=== PATIENT | male | born 1990 | race Caucasian/White ===

== ENCOUNTER 2016-07-25 16:23 | Emergency (ER) | payer BC, OTHER ==
[2016-07-25 16:33] VITALS: BP 135/77
[2016-07-25] MEDS ORDERED: Albuterol/Ipratropium 3.0-0.5 MG/3 ML Neb Soln NEB ONE (16:58)
[2016-07-25] MEDS ORDERED: predniSONE 20 MG Tab PO ONE (16:58)
[2016-07-25] MEDS ORDERED: Sodium Chloride 0.9% 1,000 ML IV ONE (16:59)
[2016-07-25] MEDS ORDERED: Sodium Chloride 0.9% 10 ML Syringe FLUSH PRN (16:59)
--- NOTE | 2016-07-25 17:03 | EDM.PDOC ---
ED HPI GENERAL MEDICAL PROBLEM - General Chief Complaint: Respiratory Problem Stated Complaint: POSSIBLE PNEMONIA Time Seen by Provider: 07/25/16 16:49 Source of Information: Reports: Patient History Limitations: Reports: No Limitations - History of Present Illness INITIAL COMMENTS - FREE TEXT/NARRATIVE: Patient is a 25-year-old male who presents to ED with concerns of pneumonia. Patient was seen by his PCP Dr. Rivera yesterday for worsening cough and shortness of breath. Labs were obtained with no concerning findings. Chest x- ray did reveal infiltrate to the right lower lobe suggestive of right lower lobar pneumonia. He was prescribed azithromycin. He was reevaluated today in the clinic and was feeling twice as bad. Thus was instructed to come to the ED for chest x-ray and lab work. States cough is worse today and has felt more short of breath. In addition notes increased coughing fits and decreased appetite. He has been pushing fluids. Past medical history includes asthma and anxiety. Current medications include azithromycin, albuterol, and Lexapro. Patient is a nonsmoker. Generalized Pain Score (Numeric/FACES): 7 - Related Data Allergies Allergy/AdvReac Type Severity Reaction Status Date / Time No Known Allergies Allergy Verified 07/25/16 16:33 Home Meds: Home Meds Albuterol Sulfate [Proair Hfa] 2 puff INH Q4H PRN 07/25/16 [History] Azithromycin [Zithromax] 1 tab PO DAILY 07/25/16 [History] Escitalopram [Lexapro] 10 mg PO DAILY 07/25/16 [History] Fluticasone/Vilanterol [Breo Ellipta 200-25 Mcg INH] 1 puff INH DAILY 07/25/16 [ History] Hydrocodone/Chlorphen P-Stirex [Tussionex Pennkinetic Susp] 5 ml PO TID PRN # 115 mike.er.12h 07/25/16 [Rx] Prednisone [IMW: predniSONE] 40 mg PO WITHBREAKFAST #10 tab 07/25/16 [Rx] Past Medical History Respiratory History: Reports: Asthma Social & Family History - Tobacco Use Smoking Status *Q: Never Smoker - Caffeine Use Caffeine Use: Reports: None - Recreational Drug Use Recreational Drug Use: No ED ROS GENERAL - Review of Systems Review Of Systems: See Below Constitutional: Reports: Fever, Chills HEENT: Reports: Sinus Problem, Throat Pain. Denies: Rhinitis, Throat Swelling Respiratory: Reports: Shortness of Breath, Wheezing, Cough. Denies: Sputum Cardiovascular: Denies: Chest Pain, Dyspnea on Exertion, Lightheadedness, Palpitations, Syncope GI/Abdominal: Denies: Abdominal Pain, Nausea, Vomiting : Reports: No Symptoms ED EXAM, GENERAL - Physical Exam Exam: See Below Exam Limited By: No Limitations General Appearance: Alert, WD/WN, No Apparent Distress Eye Exam: Bilateral Eye: PERRL Ears: Hearing Grossly Normal Nose: Normal Inspection Throat/Mouth: Normal Inspection, Normal Oropharynx, Normal Voice, No Airway Compromise Respiratory/Chest: No Respiratory Distress, No Accessory Muscle Use, Chest Non- Tender, Wheezing (expiratory wheezes rLL and RML. ). No: Decreased Breath Sounds Cardiovascular: Normal Peripheral Pulses, Regular Rate, Rhythm, No Murmur Peripheral Pulses: 2+: Radial (L) GI/Abdominal: Normal Bowel Sounds, Soft, Non-Tender, No Organomegaly, No Distention Neurological: Alert, Oriented, CN II-XII Intact, Normal Cognition Psychiatric: Normal Affect, Normal Mood Skin Exam: Warm, Dry, Intact, Normal Color Course - Vital Signs Last Recorded V/S: Last Vital Signs Temp 97.9 F 07/25/16 21:25 Pulse 99 07/25/16 16:30 Resp 22 H 07/25/16 16:30 BP 135/77 07/25/16 16:30 Pulse Ox 98 07/25/16 17:06 - Orders/Labs/Meds Orders: Active Orders 24 hr Category Date Time Status Peripheral IV Care [RC] . DIRECTED Care 07/25/16 16:59 Active RT Aerosol Therapy [RC] ASDIRECTED Care 07/25/16 16:59 Active Chest 2V [CR] Stat Exams 07/25/16 16:58 Taken Peripheral IV Insertion Adult [OM.PC] Stat Oth 07/25/16 16:59 Ordered Labs: Laboratory Tests 07/25/16 07/25/16 Range/Units 17:17 17:17 WBC 6.91 (4.23-9.07) K/mm3 RBC 4.28 L (4.63-6.08) M/mm3 Hgb 12.8 L (13.7-17.5) gm/L Hct 37.4 L (40.1-51.0) % MCV 87.4 (79.0-92.2) fl MCH 29.9 (25.7-32.2) pg MCHC 34.2 (32.2-35.5) g/dl RDW Std Deviation 40.0 (35.1-43.9) fL Plt Count 296 (163-337) K/mm3 MPV 9.8 (9.4-12.3) fl Neut % (Auto) 71.3 H (34.0-67.9) % Lymph % (Auto) 16.8 L (21.8-53.1) % [place] % (Auto) 9.6 (5.3-12.2) % Eos % (Auto) 1.6 (0.8-7.0) Baso % (Auto) 0.4 (0.1-1.2) % Neut # (Auto) 4.93 (1.78-5.38) K/mm3 Lymph # (Auto) 1.16 L (1.32-3.57) K/mm3 [place] # (Auto) 0.66 (0.30-0.82) K/mm3 Eos # (Auto) 0.11 (0.04-0.54) K/mm3 Baso # (Auto) 0.03 (0.01-0.08) K/mm3 Sodium 140 (136-145) mEq/L Potassium 4.3 (3.5-5.1) mEq/L Chloride 101 (98-107) mEq/L Carbon Dioxide 27 (21-32) mEq/L Anion Gap 16.3 H (5-15) BUN 11 (7-18) mg/dL Creatinine 1.1 (0.7-1.3) mg/dL Est Cr Clr Drug Dosing 74.42 mL/min Estimated GFR (MDRD) > 60 (>60) mL/min BUN/Creatinine Ratio 10.0 L (14-18) Glucose 94 (74-106) mg/dL Calcium 8.9 (8.5-10.1) mg/dL Total Bilirubin 0.9 (0.2-1.0) mg/dL AST 25 (15-37) U/L ALT 30 (16-63) U/L Alkaline Phosphatase 61 (46-116) U/L C-Reactive Protein 15.3 H* (<1.0) mg/dL Total Protein 7.7 (6.4-8.2) g/dl Albumin 3.2 L (3.4-5.0) g/dl Globulin 4.5 gm/dL Albumin/Globulin Ratio 0.7 L (1-2) Meds: Medications Discontinued Medications Generic Name Dose Route Start Last Admin Trade Name Freq PRN Reason Stop Dose Admin Acetaminophen 975 mg 07/25/16 20:19 07/25/16 20:33 Tylenol PO 07/25/16 20:20 975 mg NOW ONE Administration Albuterol/Ipratropium 3 ml 07/25/16 16:58 07/25/16 17:05 Duoneb 3.0-0.5 Mg/3 Ml NEB 07/25/16 16:59 3 ml ONETIME ONE Administration Ceftriaxone Sodium 1,000 mg 07/25/16 18:06 07/25/16 18:35 Rocephin IVPUSH 07/25/16 18:07 Not Given ONETIME ONE Sodium Chloride 1,000 mls @ 999 mls/hr 07/25/16 16:59 07/25/16 17:17 Normal Saline IV 07/25/16 17:59 999 mls/hr ONETIME ONE Administration Ceftriaxone Sodium 1 gm/ 100 mls @ 200 mls/hr 07/25/16 18:28 07/25/16 18:33 Sodium Chloride IV 07/25/16 18:57 200 mls/hr ONETIME ONE Administration Prednisone 40 mg 07/25/16 16:58 07/25/16 17:18 Prednisone PO 07/25/16 16:59 40 mg ONETIME ONE Administration Sodium Chloride 10 ml 07/25/16 16:59 07/25/16 17:18 Saline Flush FLUSH 10 ml ASDIRECTED PRN Administration Keep Vein Open - Re-Assessments/Exams Free Text/Narrative Re-Assessment/Exam: 07/25/16 17:02 Ordered IV with NS, DuoNeb, and prednisone 40 mg p.o. Initial labs and studies include CBC, chem 14, CRP, and chest x-ray 2 view. Patient had some improvement to the coughing with the above therapies. Chest x-ray revealed right middle lobe and left lower lobe pneumonia. Labs revealed white blood cell count 6.91, hemoglobin 12.8, neutrophil % 1.3, digital #4.93, sodium 140, potassium 4.3, CO2 27, creatinine 1.1. CRP is 15. Offered to admit patient for pneumonia to which he refused. Requested to be discharged home. 07/25/16 20:10 Patient was feeling warm. Temp was 100.7. Ordered tylenol 975mg PO. Patient has had multiple coughing fits. He has notified nursing staff he wishes to be admitted. 07/25/16 21:10 Cough has subsided. Patient requests to be discharged home. Will not change antibiotic. Added prednisone and tussionex to treatment regimen. Patient has albuterol inhaler and neb treatments at home. Departure - Departure Time of Disposition: 21:02 Disposition: Admitted As Inpatient 64 Condition: fair Clinical Impression: Community acquired pneumonia - Discharge Information Prescriptions: Hydrocodone/Chlorphen P-Stirex [Tussionex Pennkinetic Susp] 5 ml PO TID PRN # 115 mike.er.12h PRN Reason: Cough Prednisone [IMW: predniSONE] 40 mg PO WITHBREAKFAST #10 tab Instructions: Community-Acquired Pneumonia, Adult, [id number] Referrals: Moo Rivera Jr, MD [Primary Care Provider] - Forms: ED Department Discharge Additional Instructions: As discussed keep taking the azithromycin as prescribed. Will add prednisone 40 mg every a.m. for 5 days and Tussionex cough syrup 5 mls 3 times a day as needed for coughing. This medication has narcotics and thus request no driving while taking this. Continue utilizing her albuterol inhaler and that treatment as prescribed. Push fluids. Ensure adequate rest. Follow up with your primary care provider in 7-10 days for reevaluation. Cough may persist for quite some time. Can also add Mucinex 600 mg twice a day for 7 days. Return back to the ED for any new or worsening symptoms. - My Orders Last 24 Hours: My Active Orders 07/25/16 16:58 Chest 2V [CR] Stat 07/25/16 16:59 Peripheral IV Care [RC] . DIRECTED RT Aerosol Therapy [RC] ASDIRECTED Peripheral IV Insertion Adult [OM.PC] Stat - Assessment/Plan Last 24 Hours: My Active Orders 07/25/16 16:58 Chest 2V [CR] Stat 07/25/16 16:59 Peripheral IV Care [RC] . DIRECTED RT Aerosol Therapy [RC] ASDIRECTED Peripheral IV Insertion Adult [OM.PC] Stat
[2016-07-25] MEDS ORDERED: cefTRIAXone 1,000 MG VIAL IVPUSH ONE (18:06)
[2016-07-25] MEDS ORDERED: cefTRIAXone 1 GM in Sodium Chloride 0.9% 100 ML IV ONE (18:28)
[2016-07-25] MEDS ORDERED: Acetaminophen 325 MG Tab PO ONE (20:19)
--- NOTE | 2016-07-26 12:55 | CR ---
Chest: Two views of the chest were obtained. Comparison: No previous study. Increased density identified within both lungs. Heart size and mediastinum are normal. Bony structures are unremarkable. Impression: 1. Increased density within both lungs most likely representing multifocal pneumonia. Diagnostic code #5
== END 2016-07-25 21:30 | disposition critical access hospital (66) ==
LOC: JD.ED 16:23 → EDBD 16:23 → JD.ED 21:30
DX: J18.9 Pneumonia, unspecified organism (principal); J45.909 Unspecified asthma, uncomplicated; F41.9 Anxiety disorder, unspecified; Z79.2 Long term (current) use of antibiotics; Z79.899 Other long term (current) drug therapy
CPT/HCPCS: 36415; 71020; 80053; 85025; 86140; 94664; 96361; 96365; 96366; 99285; A9270; J0696; J7030; J7040; J7050; 99284

== ENCOUNTER 2017-02-26 08:46 | Emergency (ER) | payer BC ==
[2017-02-26 09:02] VITALS: BP 130/76
--- NOTE | 2017-02-26 09:03 | EDM.PDOC ---
ED HPI GENERAL MEDICAL PROBLEM - General Chief Complaint: Trauma Stated Complaint: [facility] Time Seen by Provider: 02/26/17 08:48 - History of Present Illness INITIAL COMMENTS - FREE TEXT/NARRATIVE: 27-year-old male presents emergency room after falling downstairs sustaining head injury. Patient was standing on the top step started going down stairs his feet went out from underneath him he believes he struck his head first and then hit his bottom he complains of the back of his head hurting. No other significant complaints at this point. He's unsure if he had knee brief loss of consciousness he saw stars after it happened. He's had no nausea no vomiting with careful discussion it sounds as though the head hit first from a height greater than 5 feet. The patient felt dazed after this occurred this is improving. Posterior Head Pain Score (Numeric/FACES): 7 - Related Data Allergies Allergy/AdvReac Type Severity Reaction Status Date / Time No Known Allergies Allergy Verified 07/25/16 16:33 Home Meds: Home Meds Albuterol Sulfate [Proair Hfa] 2 puff INH Q4H PRN 07/25/16 [History] Escitalopram [Lexapro] 10 mg PO DAILY 07/25/16 [History] Fluticasone/Vilanterol [Breo Ellipta 200-25 Mcg INH] 1 puff INH DAILY 07/25/16 [ History] Past Medical History Respiratory History: Reports: Asthma Social & Family History - Tobacco Use Smoking Status *Q: Never Smoker - Caffeine Use Caffeine Use: Reports: None - Recreational Drug Use Recreational Drug Use: No Review of Systems - Review of Systems Review Of Systems: See Below Constitutional: Reports: No Symptoms Eyes: Reports: No Symptoms Ears: Reports: No Symptoms Nose: Reports: No Symptoms Mouth/Throat: Reports: No Symptoms Respiratory: Reports: No Symptoms Cardiovascular: Reports: No Symptoms GI/Abdominal: Reports: No Symptoms ED EXAM, GENERAL - Physical Exam Exam: See Below Exam Limited By: No Limitations General Appearance: Alert, No Apparent Distress Eye Exam: Bilateral Eye: EOMI, PERRL Ears: Normal External Exam, Normal Canal, Hearing Grossly Normal, Normal TMs Nose: Normal Inspection, Normal Mucosa, No Blood Throat/Mouth: Normal Inspection, Normal Lips, Normal Teeth, Normal Gums, Normal Oropharynx, Normal Voice, No Airway Compromise Head: Normocephalic, Other (Operation over the occiput) Neck: Normal Inspection, Supple, Non-Tender, Full Range of Motion, Other (No bony tenderness however he has some discomfort when he moves his head. He has some left-sided paraspinous tightness that extends down into his back.). No: Lymphadenopathy (L), Lymphadenopathy (R), Tender Midline Respiratory/Chest: No Respiratory Distress, Lungs Clear, Normal Breath Sounds Cardiovascular: Regular Rate, Rhythm, No Edema, No Murmur Back Exam: Normal Inspection. No: Vertebral Tenderness Neurological: Other (Cranial nerves II through XII grossly intact all muscle groups in upper and lower extremities are equal and appropriate bilaterally. Cerebellar testing is within normal limits.) Psychiatric: Normal Affect, Normal Mood Skin Exam: Warm, Dry, Intact, Normal Color Course - Vital Signs Last Recorded V/S: Last Vital Signs Temp 36.9 C 02/26/17 08:52 Pulse 67 02/26/17 08:52 Resp 15 02/26/17 08:52 BP 130/76 02/26/17 08:52 Pulse Ox 100 02/26/17 08:52 - Orders/Labs/Meds Orders: Active Orders 24 hr Category Date Time Status Cervical Spine 2V or 3V [CR] Stat Exams 02/26/17 08:59 Taken Meds: Medications Discontinued Medications Generic Name Dose Route Start Last Admin Trade Name Ale PRN Reason Stop Dose Admin Acetaminophen 650 mg 02/26/17 09:35 02/26/17 09:59 Tylenol PO 02/26/17 09:36 650 mg NOW ONE Administration - Re-Assessments/Exams Free Text/Narrative Re-Assessment/Exam: 02/26/17 09:[address] appears to be normal. Cervical spine shows loss of lordotic curvature otherwise no acute fracture dislocation identified. The patient will be given Tylenol for his discomfort 02/26/17 10:47 Patient continues to do well we'll discharge at this point Departure - Departure Time of Disposition: 10:47 Disposition: Home, Self-Care 01 Clinical Impression: Head injury, Cervical muscle strain - Discharge Information Referrals: Moo Rivera Jr, MD [Primary Care Provider] - Forms: ED Department Discharge Additional Instructions: Return to the emergency room with any questions or problems. Close observation today return to the emergency room with any unusual symptoms or unusual behavior. Tylenol 650 mg every 4-6 hours as needed for discomfort today, tomorrow he may use ibuprofen as needed. Follow-up with your regular physician early next week or follow-up at the Hospital clinic. [phone] - My Orders Last 24 Hours: My Active Orders 02/26/17 08:59 Cervical Spine 2V or 3V [CR] Stat - Assessment/Plan Last 24 Hours: My Active Orders 02/26/17 08:59 Cervical Spine 2V or 3V [CR] Stat
--- NOTE | 2017-02-26 09:32 | CT ---
Head CT Technique: Multiple axial sections through the brain were obtained. Intravenous contrast was not utilized. Comparison: No prior intracranial imaging. Findings: Ventricles along with basal cisterns and sulci over the convexities are within normal limits for the patient's age. No abnormal parenchymal densities are seen. No evidence of intracranial hemorrhage. No midline shift or mass effect is seen. Bone window settings were reviewed which shows the visualized sinuses to appear clear. No acute calvarial abnormality is identified. Impression: 1. No acute intracranial abnormality is identified. Diagnostic code #1
[2017-02-26] MEDS ORDERED: Acetaminophen 325 MG Tab PO ONE (09:35)
--- NOTE | 2017-02-26 10:54 | CR ---
Cervical spine: AP, lateral and odontoid views of the cervical spine were obtained. Comparison: No previous study. Disc spaces are maintained. Prevertebral soft tissues are normal. No acute fracture or other bony abnormality is seen. Impression: 1. No abnormality is identified on three-view cervical spine study. Diagnostic code #1
== END 2017-02-26 11:00 | disposition home or self-care (01) ==
LOC: JD.ED 08:47
DX: S16.1XXA Strain of muscle, fascia and tendon at neck level, initial encounter (principal); S09.90XA Unspecified injury of head, initial encounter; J45.909 Unspecified asthma, uncomplicated; Z79.899 Other long term (current) drug therapy; W10.8XXA Fall (on) (from) other stairs and steps, initial encounter
CPT/HCPCS: 70450; 72040; 99285; A9270; 99283

== ENCOUNTER 2020-01-18 15:45 | Emergency (ER) | payer BC, OTHER ==
[2020-01-18 16:01] VITALS: BP 148/90; PULSE 86
[2020-01-18] MEDS ORDERED: Haloperidol Lactate 5 MG/ML SDV IVPUSH ONE (16:12)
[2020-01-18] MEDS ORDERED: diphenhydrAMINE 50 MG/ML SDV IVPUSH ONE (16:12)
[2020-01-18] MEDS ORDERED: LORazepam 2 MG/ML SDV IV ONE (16:12)
[2020-01-18] MEDS ORDERED: Dextrose 5%-0.9% NaCl 1,000 ML IV SCH (16:15)
--- NOTE | 2020-01-18 16:22 | EDM.PDOCBH ---
<Julián Watts - Last Filed: 01/19/20 06:29> ED HPI GENERAL MEDICAL PROBLEM - General Chief Complaint: Drug or Alcohol Abuse Stated Complaint: [facility] Time Seen by Provider: 01/18/20 16:11 - Related Data Allergies Allergy/AdvReac Type Severity Reaction Status Date / Time shellfish derived Allergy Other Verified 01/18/20 15:54 Home Meds: Home Meds Fluticasone/Vilanterol [Breo Ellipta 100-25 MCG Inhalation Kit] 1 puff INH DAILY 12/03/17 [History] Escitalopram [Lexapro] 20 mg PO DAILY 01/18/20 [History] Triamcinolone Aceton/Silicones [Silalite 0.1% Rafael] 0.25 tsp TOP ASDIRECTED 01/18/20 [History] buPROPion HCL [Bupropion Xl] 150 mg PO DAILY 01/18/20 [History] clonazePAM [Clonazepam] 1 mg PO DAILY 01/18/20 [History] COURSE, BEHAVIORAL HEALTH COMP - Course Re-Assessment/Re-Exam: Taking over for Dr Fink. The patient is awake now and does not feel suicidal. He is not ready to leave yet. I will give him a little more time and discharge him home. Departure - Departure Time of Disposition: 06:35 Disposition: Home, Self-Care 01 Condition: Good Clinical Impression: Depressive disorder, Suicidal ideation Alcohol intoxication Qualifiers: Complication of substance-induced condition: uncomplicated Qualified Code(s): F10.920 - Alcohol use, unspecified with intoxication, uncomplicated - Discharge Information *PRESCRIPTION DRUG MONITORING PROGRAM REVIEWED*: Not Applicable *COPY OF PRESCRIPTION DRUG MONITORING REPORT IN PATIENT BEN: Not Applicable Instructions: Binge-Drinking Information, Adult, Major Depressive Disorder, Adult, Orde-be-Azxe, Suicidal Feelings: How to Help Yourself Referrals: PCP,None [Ordering Only Provider] - Marlin Douglas NP [Nurse Practitioner] - 1 Week Forms: ED Department Discharge Additional Instructions: Take your medication as prescribed. Follow up with your provider next week. If you do not have a provider, follow up with Marlin Douglas in our clinic. Please return if you are worse. <Bakari Fink - Last Filed: 01/20/20 19:47> ED HPI GENERAL MEDICAL PROBLEM - General Source of Information: Reports: Patient History Limitations: Reports: Intoxication, Other (extremely anxious and crying uncontrollably. ) - History of Present Illness INITIAL COMMENTS - FREE TEXT/NARRATIVE: 30-year-old male presents to the ED from [facility] per their ambulance service. Patient apparently has been drinking a large amount of vodka all day he states at least half of a 130-second and I do not know how many ounces that is. Probably close to 16. He denies drinking any other intoxicant. He denies using any street drugs. He has never used intravenous drugs. He presents feeling very agitated and tearful. He states that he did take 5 clonazepam 1 mg tablets today in an effort to try and get some sleep and perhaps to end his life. He is ambivalent about this. 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 He feels his is blaming him for not keeping up his end of the business deal. He is having trouble coping with this. He states has been drinking a lot more alcohol over the last month than he has in his entire life. He denies smoking. He states he does take Lexapro daily for depression and anxiety relief. Times he takes 220 mg tablets instead of 1. He reports that he has been tested recently for COVID-19 2 days ago but has not gotten the results yet. He reports that his [id number] was Covid positive. Onset: Unknown/Unsure (History suggest that he is been drinking fair amount of alcohol on a daily basis but to a large extent over the last 24 hours.) Onset Date: 01/17/20 Duration: Hour(s):, Getting Worse Location: Reports: Other (Charles acutely intoxicated by alcohol with complete l oss of his mood with excessive crying and tearing. He does not appear sedated in any fashion or form.) Quality: Reports: Other (Acute alcohol intoxication. Possible suicidal ideation although I cannot get a firm answer from the patient at this time about his commitment to ending his life.) Severity: Moderate Improves with: Reports: None Worsens with: Reports: None Context: Reports: Other (Acute alcohol intoxication with possibility of taking 5 tablets of clonazepam 0.5 mg strength throughout the day today. He does not appear to be sedated at all.). Denies: Activity, Exercise, Lifting, Sick Contact, Trauma Associated Symptoms: Reports: Cough, Loss of Appetite, Malaise, Other (Face is flushed and does feel febrile however nurses report temperature is 36.3.). 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: Other (see below) (Has drank approximately 16 ounces of vodka today and he claims to have taken 5 tablets of 1 mg strength clonazepam today) Past Medical History HEENT History: Reports: Impaired Vision Respiratory History: Reports: Asthma Psychiatric History: Reports: Anxiety, Depression, Suicidal Ideation, Other (See Below) (Alcohol abuse) Dermatologic History: Reports: Other (See Below) (Diffuse vitiligo) - Infectious Disease History Infectious Disease History: Reports: Chicken Pox - Past Surgical History Other HEENT Surgeries/Procedures: extraction of wisdom teeth Social & Family History - Family History Family Medical History: No Pertinent Family History - Caffeine Use Caffeine Use: Reports: Coffee, Energy Drinks Caffeine Use Comment: coffee daily and energy drinks daily - Living Situation & Occupation Living situation: Reports: Occupation: Employed (Early self-employed) ED ROS GENERAL - Review of Systems Review Of Systems: See Below Constitutional: Reports: Malaise, Weakness, Fatigue, Decreased Appetite (He denies eating anything to so far today.). Denies: Fever, Chills, Weight Loss HEENT: Reports: No Symptoms Respiratory: Reports: Shortness of Breath, Cough. Denies: Wheezing, Pleuritic Chest Pain, Sputum, Hemoptysis Cardiovascular: Denies: Chest Pain, Blood Pressure Problem, Claudication, Dyspnea on Exertion, Edema, Lightheadedness, Orthopnea, Palpitations Endocrine: Reports: Fatigue GI/Abdominal: Reports: Other (GERD.) : Reports: No Symptoms Musculoskeletal: Reports: Neck Pain, Back Pain Skin: Reports: No Symptoms Neurological: Reports: No Symptoms Psychiatric: Reports: No Symptoms Hematologic/Lymphatic: Reports: No Symptoms Immunologic: Reports: No Symptoms ED EXAM, BEHAVIORAL HEALTH - Physical Exam Exam: See Below Exam Limited By: Intoxication (Is very intoxicated by alcohol. He is carrying on by being very tearful with mood swings but he will calm down and answers questions appropriately.) General Appearance: Anxious, Severe Distress (Very anxious tearful with excessive crying and yelling out in the room.) Eye Exam: Bilateral Eye: Conjunctival Injection (Bilateral conjunctival injection from crying.), Normal Fundi, Nystagmus (Bilateral nystagmus on lateral gaze.), PERRL Ears: Normal TMs Throat/Mouth: Normal Inspection (Tongue is mildly dry.), Normal Lips, Normal Or opharynx, Other Head: Atraumatic, Normocephalic, Other Neck: Normal Inspection (Face is flushed and warm to palpation but there are no acute injuries to the head or neck.), Supple, Non-Tender, Full Range of Motion. No: Lymphadenopathy (L), Lymphadenopathy (R) Respiratory/Chest: No Respiratory Distress, Lungs Clear, Normal Breath Sounds, No Accessory Muscle Use Cardiovascular: Normal Peripheral Pulses, Regular Rate, Rhythm, No Edema, No Gallop, No Murmur, No Rub GI/Abdominal: Normal Bowel Sounds, Soft, Non-Tender, No Organomegaly, No Mass, Pelvis Stable, Other (Moderately obese. No surgical scars.) Back Exam: Normal Inspection, Full Range of Motion. No: CVA Tenderness (L), CVA Tenderness (R) Extremities: Normal Inspection, Normal Range of Motion, Non-Tender, No Pedal Edema Neurological: Alert, Normal Mood/Affect, CN II-XII Intact, Normal Cognition, No Motor/Sensory Deficits, Oriented x 3 Psychiatric: Oriented, Incoherent (Coherent at times as he is crying so much.), Tearful, Suicidal Thoughts. No: Poor Eye Contact, Uncooperative, Withdrawn, Flight of Ideas, Homicidal Thoughts, Phobic, Mandaen Delusions, Suicidal Plan, Tangential Thoughts (Admits to suicidal ideation intermittently), Auditory Hallucinations, Visual Hallucinations, Grandiose Thoughts, Pressured Speech, Paranoid Thoughts Skin Exam: Warm, Dry, Intact, Normal color, Other (And has diffuse vitiligo involving his upper extremities anterior chest neck groin genital area) #1 Interpretation EKG Date: 01/18/20 Time: 16:28 Rhythm: NSR Rate (Beats/Min): 80 Tiro: Normal P-Wave: Present QRS: Normal ST-T: Other QT: Normal (Wave flattening leads III and V1 nonspecific finding) EKG Interpretation Comments: Essentially normal ECG COURSE, BEHAVIORAL HEALTH COMP - Course Vital Signs: Last Vital Signs Temp 36.3 C 01/18/20 15:54 Pulse 86 01/18/20 15:54 Resp 13 01/18/20 15:54 BP 148/90 H 01/18/20 15:54 Pulse Ox 98 01/18/20 15:54 Orders, Labs, Meds: Laboratory Tests 01/18/20 01/18/20 01/18/20 Range/Units 16:15 16:15 16:15 WBC 5.46 (4.23-9.07) K/mm3 RBC 4.79 (4.63-6.08) M/mm3 Hgb 15.0 (13.7-17.5) gm/dl Hct 40.2 (40.1-51.0) % MCV 83.9 D (79.0-92.2) fl MCH 31.3 (25.7-32.2) pg MCHC 37.3 H (32.2-35.5) g/dl RDW Std Deviation 38.6 (35.1-43.9) fL Plt Count 196 (163-337) K/mm3 MPV 10.8 (9.4-12.3) fl Neut % (Auto) 38.8 (34.0-67.9) % Lymph % (Auto) 45.1 (21.8-53.1) % Boyd % (Auto) 6.4 (5.3-12.2) % Eos % (Auto) 8.4 H (0.8-7.0) Baso % (Auto) 1.3 H (0.1-1.2) % Neut # (Auto) 2.12 (1.78-5.38) K/mm3 Lymph # (Auto) 2.46 (1.32-3.57) K/mm3 Boyd # (Auto) 0.35 (0.30-0.82) K/mm3 Eos # (Auto) 0.46 (0.04-0.54) K/mm3 Baso # (Auto) 0.07 (0.01-0.08) K/mm3 Manual Slide Review Normal smear PT 10.3 (9.7-12.0) SECONDS INR 0.96 APTT 26.8 (21.7-31.4) SECONDS Sodium 141 (136-145) mEq/L Potassium 3.9 (3.5-5.1) mEq/L Chloride 104 (98-107) mEq/L Carbon Dioxide 23 (21-32) mEq/L Anion Gap 17.9 H (5-15) BUN 9 (7-18) mg/dL Creatinine 1.1 (0.7-1.3) mg/dL Est Cr Clr Drug Dosing 102.68 mL/min Estimated GFR (MDRD) > 60 (>60) mL/min BUN/Creatinine Ratio 8.2 L (14-18) Glucose 95 (74-106) mg/dL Calcium 9.2 (8.5-10.1) mg/dL Magnesium 1.9 (1.8-2.4) mg/dl Total Bilirubin 0.6 (0.2-1.0) mg/dL AST 26 (15-37) U/L ALT 43 (16-63) U/L Alkaline Phosphatase 39 L (46-116) U/L C-Reactive Protein 0.2 (<1.0) mg/dL NT-Pro-B Natriuret Pep (0-125) pg/mL Total Protein 7.4 (6.4-8.2) g/dl Albumin 4.2 (3.4-5.0) g/dl Globulin 3.2 gm/dL Albumin/Globulin Ratio 1.3 (1-2) Urine Color (Yellow) Urine Appearance (Clear) Urine pH (5.0-8.0) Ur Specific Kelso (1.005-1.030) Urine Protein (Negative) Urine Glucose (UA) (Negative) Urine Ketones (Negative) Urine Occult Blood (Negative) Urine Nitrite (Negative) Urine Bilirubin (Negative) Urine Urobilinogen (0.2-1.0) Ur Leukocyte Esterase (Negative) Urine RBC (0-5) /hpf Urine WBC (0-5) /hpf Ur Squamous Epith Cells (0-5) /hpf Urine Bacteria (FEW) /hpf Urine Mucus (FEW) /hpf Urine Opiates Screen (HRHZZG=478) Ur Buprenorphine Scrn (CUTOFF=10) Ur Oxycodone Screen (BJD3KJ=242) Urine Methadone Screen (FMI0SB=541) Ur Propoxyphene Screen (WRRPQI=124) Ur Barbiturates Screen (ZEZROI=858) Ur Tricyclics Screen (MBUXOW=544) Ur Phencyclidine Scrn (CUTOFF=25) Ur Amphetamine Screen (KCTNLB=671) U Methamphetamines Scrn (IJTGMJ=228) U Benzodiazepines Scrn (VLSNHU=347) U Cocaine Metab Screen (LHXCUG=540) U Marijuana (THC) Screen (CUTOFF=50) Ethyl Alcohol 0.11 (0.00) gm% SARS-CoV-2 RNA (WILLIAM) (NEGATIVE) 01/18/20 01/18/20 01/18/20 Range/Units 16:15 16:25 16:25 WBC (4.23-9.07) K/mm3 RBC (4.63-6.08) M/mm3 Hgb (13.7-17.5) gm/dl Hct (40.1-51.0) % MCV (79.0-92.2) fl MCH (25.7-32.2) pg MCHC (32.2-35.5) g/dl RDW Std Deviation (35.1-43.9) fL Plt Count (163-337) K/mm3 MPV (9.4-12.3) fl Neut % (Auto) (34.0-67.9) % Lymph % (Auto) (21.8-53.1) % Boyd % (Auto) (5.3-12.2) % Eos % (Auto) (0.8-7.0) Baso % (Auto) (0.1-1.2) % Neut # (Auto) (1.78-5.38) K/mm3 Lymph # (Auto) (1.32-3.57) K/mm3 Boyd # (Auto) (0.30-0.82) K/mm3 Eos # (Auto) (0.04-0.54) K/mm3 Baso # (Auto) (0.01-0.08) K/mm3 Manual Slide Review PT (9.7-12.0) SECONDS INR APTT (21.7-31.4) SECONDS Sodium (136-145) mEq/L Potassium (3.5-5.1) mEq/L Chloride (98-107) mEq/L Carbon Dioxide (21-32) mEq/L Anion Gap (5-15) BUN (7-18) mg/dL Creatinine (0.7-1.3) mg/dL Est Cr Clr Drug Dosing mL/min Estimated GFR (MDRD) (>60) mL/min BUN/Creatinine Ratio (14-18) Glucose (74-106) mg/dL Calcium (8.5-10.1) mg/dL Magnesium (1.8-2.4) mg/dl Total Bilirubin (0.2-1.0) mg/dL AST (15-37) U/L ALT (16-63) U/L Alkaline Phosphatase (46-116) U/L C-Reactive Protein (<1.0) mg/dL NT-Pro-B Natriuret Pep 77 (0-125) pg/mL Total Protein (6.4-8.2) g/dl Albumin (3.4-5.0) g/dl Globulin gm/dL Albumin/Globulin Ratio (1-2) Urine Color Yellow (Yellow) Urine Appearance Clear (Clear) Urine pH 7.0 (5.0-8.0) Ur Specific Kelso 1.020 (1.005-1.030) Urine Protein Negative (Negative) Urine Glucose (UA) Negative (Negative) Urine Ketones Negative (Negative) Urine Occult Blood Negative (Negative) Urine Nitrite Negative (Negative) Urine Bilirubin Negative (Negative) Urine Urobilinogen 0.2 (0.2-1.0) Ur Leukocyte Esterase Negative (Negative) Urine RBC 0-5 (0-5) /hpf Urine WBC 0-5 (0-5) /hpf Ur Squamous Epith Cells Not seen (0-5) /hpf Urine Bacteria Occasional (FEW) /hpf Urine Mucus Not seen (FEW) /hpf Urine Opiates Screen Presumptive positive H (SEUTKF=966) Ur Buprenorphine Scrn Negative (CUTOFF=10) Ur Oxycodone Screen Negative (XVJ2WM=596) Urine Methadone Screen Negative (RQS1NO=511) Ur Propoxyphene Screen Negative (XUODPS=736) Ur Barbiturates Screen Negative (BOYNXK=677) Ur Tricyclics Screen Negative (PMWKFM=798) Ur Phencyclidine Scrn Negative (CUTOFF=25) Ur Amphetamine Screen Negative (CHNRHP=788) U Methamphetamines Scrn Negative (WNSOFU=555) U Benzodiazepines Scrn Negative (DPVQGQ=469) U Cocaine Metab Screen Negative (GROUKI=662) U Marijuana (THC) Screen Negative (CUTOFF=50) Ethyl Alcohol (0.00) gm% SARS-CoV-2 RNA (WILLIAM) (NEGATIVE) 01/18/20 Range/Units 16:56 WBC (4.23-9.07) K/mm3 RBC (4.63-6.08) M/mm3 Hgb (13.7-17.5) gm/dl Hct (40.1-51.0) % MCV (79.0-92.2) fl MCH (25.7-32.2) pg MCHC (32.2-35.5) g/dl RDW Std Deviation (35.1-43.9) fL Plt Count (163-337) K/mm3 MPV (9.4-12.3) fl Neut % (Auto) (34.0-67.9) % Lymph % (Auto) (21.8-53.1) % Boyd % (Auto) (5.3-12.2) % Eos % (Auto) (0.8-7.0) Baso % (Auto) (0.1-1.2) % Neut # (Auto) (1.78-5.38) K/mm3 Lymph # (Auto) (1.32-3.57) K/mm3 Boyd # (Auto) (0.30-0.82) K/mm3 Eos # (Auto) (0.04-0.54) K/mm3 Baso # (Auto) (0.01-0.08) K/mm3 Manual Slide Review PT (9.7-12.0) SECONDS INR APTT (21.7-31.4) SECONDS Sodium (136-145) mEq/L Potassium (3.5-5.1) mEq/L Chloride (98-107) mEq/L Carbon Dioxide (21-32) mEq/L Anion Gap (5-15) BUN (7-18) mg/dL Creatinine (0.7-1.3) mg/dL Est Cr Clr Drug Dosing mL/min Estimated GFR (MDRD) (>60) mL/min BUN/Creatinine Ratio (14-18) Glucose (74-106) mg/dL Calcium (8.5-10.1) mg/dL Magnesium (1.8-2.4) mg/dl Total Bilirubin (0.2-1.0) mg/dL AST (15-37) U/L ALT (16-63) U/L Alkaline Phosphatase (46-116) U/L C-Reactive Protein (<1.0) mg/dL NT-Pro-B Natriuret Pep (0-125) pg/mL Total Protein (6.4-8.2) g/dl Albumin (3.4-5.0) g/dl Globulin gm/dL Albumin/Globulin Ratio (1-2) Urine Color (Yellow) Urine Appearance (Clear) Urine pH (5.0-8.0) Ur Specific Kelso (1.005-1.030) Urine Protein (Negative) Urine Glucose (UA) (Negative) Urine Ketones (Negative) Urine Occult Blood (Negative) Urine Nitrite (Negative) Urine Bilirubin (Negative) Urine Urobilinogen (0.2-1.0) Ur Leukocyte Esterase (Negative) Urine RBC (0-5) /hpf Urine WBC (0-5) /hpf Ur Squamous Epith Cells (0-5) /hpf Urine Bacteria (FEW) /hpf Urine Mucus (FEW) /hpf Urine Opiates Screen (DELVNC=465) Ur Buprenorphine Scrn (CUTOFF=10) Ur Oxycodone Screen (QFJ9IN=283) Urine Methadone Screen (ADH8YB=157) Ur Propoxyphene Screen (GGVFWX=021) Ur Barbiturates Screen (JCBAFC=295) Ur Tricyclics Screen (FLZWEQ=261) Ur Phencyclidine Scrn (CUTOFF=25) Ur Amphetamine Screen (UNMNHO=068) U Methamphetamines Scrn (OSSJTP=126) U Benzodiazepines Scrn (FWLPTZ=941) U Cocaine Metab Screen (RAJZSD=329) U Marijuana (THC) Screen (CUTOFF=50) Ethyl Alcohol (0.00) gm% SARS-CoV-2 RNA (WILLIAM) Negative (NEGATIVE) Medications Discontinued Medications Generic Name Dose Route Start Last Admin Trade Name Ale PRN Reason Stop Dose Admin Diphenhydramine HCl 50 mg 01/18/20 16:12 01/18/20 16:46 Benadryl IVPUSH 01/18/20 16:13 50 mg ONETIME ONE Administration Haloperidol Lactate 5 mg 01/18/20 16:12 01/18/20 16:46 Haldol IVPUSH 01/18/20 16:13 5 mg ONETIME ONE Administration Dextrose/Sodium Chloride 1,000 mls @ 500 mls/hr 01/18/20 16:15 01/18/20 16:45 Dextrose 5%-Normal Saline IV 500 mls/hr ASDIRECTED ELLIS Administration Lorazepam 1 mg 01/18/20 16:12 01/18/20 16:46 Ativan IV 01/18/20 16:13 1 mg ONETIME ONE Administration Re-Assessment/Re-Exam: 30-year-old male presents to the ED from [facility] per ambulance. He admits that he has been drinking a large amount of vodka today. Paramedics report that he called in and indicated that he was having a nervous breakdown. 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 Apparently he feels that she blames him for not keeping up his end of the work. Patient has a history of depression and anxiety and indicates that he but has been using bupropion and Lexapro as prescribed. He states today he did take 5 tablets of 1 mg strength clonazepam throughout the day in the hopes of getting some sleep. It is unclear or at least seems somewhat ambivalent whether or not he is intent on ending his life. He does admit to some suicidal ideation. The problem that he is so intoxicated and blood bring and tearful that I cannot get a firm history from the patient at this time. He denies having anything to eat today. He states he has been tested for COVID-19 2 days ago but has not heard of the results. Apparently his [id number] is positive. Plan he will have a COVID-19 test routine labs including blood alcohol level done. Plan will be to administer IV fluids D5 normal saline at 150 mils per hour. Given Ativan 1 mg IV with Benadryl 50 mg IV and Haldol 5 mg IV. Re-Assessment/Re-Exam Date: 01/18/20 (White count is 5.46 with 38.8% neutrophils. Hemoglobin is 15.0 with hematocrit of 40.2. Platelet count is 196,000. The smear appears normal. PT is 10.3 with an INR of 0.96 PTT is 26.8 all normal. Sodium is 141 with a potassium of 3.9. Chloride is 104 the bicarb of 23. Anion gap is mildly elevated at 17.9. BUN is 9 with a creatinine of 1.1. GFR is greater than 60. Glucose is 95. Calcium is 9.2. Magnesium is 1.9. Bilirubin is 0.6 liver function otherwise normal C-reactive protein 0.2 BNP 77 total protein 7.4 with an albumin fraction of 4.2 urinalysis the urinalysis came back normal. The urine drug screen came back presumptively positive for opiates. Blood alcohol is 0.11 g% and he seems much more intoxicated than this. COVID-19 screen is negative.) Re-Assessment/Re-Exam Time: 19:33 (Patient has been sleeping since admission to the ED. O2 sats have ranged from 91 to 96%. Care will be transferred to Dr. Watts it is change of shift. The patient remains asleep and has rolled over once. His is not inquired about him at all. Once he is sober we have to determine whether or not he has suicidal intent. My impression was that this was an emotional outburst out of his sense of frustration from financial and marital discord and worsened by acute alcohol intoxication.) Sepsis Event Note (ED) - Evaluation Sepsis Screening Result: No Definite Risk
== END 2020-01-19 07:50 | disposition home or self-care (01) ==
LOC: JD.ED 15:45
DX: F10.120 Alcohol abuse with intoxication, uncomplicated (principal); Y90.5 Blood alcohol level of 100-119 mg/100 ml; F41.9 Anxiety disorder, unspecified; J45.909 Unspecified asthma, uncomplicated; F32.9 Major depressive disorder, single episode, unspecified; Z20.828 Contact with and (suspected) exposure to other viral communicable diseases; Z79.899 Other long term (current) drug therapy; Z91.013 Allergy to seafood
CPT/HCPCS: 36415; 80053; 80306; 80307; 81001; 83735; 83880; 85025; 85610; 85730; 86140; 87635; 93005; 96374; 96375; 99285; J1200; J1630; J2060; J7042; 93010; 99284; U0002

== ENCOUNTER 2025-01-09 10:58 | Emergency (ER) | payer BC ==
[2025-01-09 12:13] VITALS: BP 142/86; PULSE 80
== END 2025-01-09 12:14 | disposition home or self-care (01) ==
LOC: JD.ED 10:58
DX: S61.201A Unspecified open wound of left index finger without damage to nail, initial encounter (principal); J45.909 Unspecified asthma, uncomplicated; Z79.899 Other long term (current) drug therapy; Z91.013 Allergy to seafood; Z79.51 Long term (current) use of inhaled steroids; W31.2XXA Contact with powered woodworking and forming machines, initial encounter
CPT/HCPCS: 73140; 96372; 99283; J0690; 99282